=== PATIENT | female | born 1945 | race Caucasian/White ===

== ENCOUNTER 2024-06-27 08:43 | Emergency (ER) | payer MEDICARE, BC ==
[~2024-06-27] VITALS: Ht 170.2 cm; Wt 68.9 kg
[2024-06-27] MEDS ORDERED: LIDOCAINE 1%-EPI 1:100,000 20 ML VIAL ONE (08:48)
[2024-06-27] MEDS: LIDOCAINE 1%-EPI 1:100,000 20 ML VIAL IJ ONE (09:35)
[2024-06-27] MEDS ORDERED: NEOMY/BACITRA/POLYMYXIN B OINT UD PACKET TP ONE ×2 (09:37→10:09)
[2024-06-27] MEDS: NEOMY/BACITRA/POLYMYXIN B OINT UD PACKET TP ONE (09:40)
[2024-06-27] MEDS ORDERED: TDAP DIPH,PERTUSS,TET VAC/PF 0.5 ML DISP.SYRIN IM ONE (09:47)
[2024-06-27] MEDS: TDAP DIPH,PERTUSS,TET VAC/PF 0.5 ML DISP.SYRIN IM ONE (10:38)
[2024-06-27 12:46] VITALS: BP 138/51; O2SAT 98
== END 2024-06-27 13:29 | disposition home or self-care (01) ==
LOC: ER 08:43
DX: S01.81XA Laceration without foreign body of other part of head, initial encounter (principal); W18.39XA Other fall on same level, initial encounter; Y93.89 Activity, other specified; Y92.89 Other specified places as the place of occurrence of the external cause; Y99.8 Other external cause status
CPT/HCPCS: 70450; 73120; 90715; A4606; A4663; J3490